=== PATIENT | male | born 1955 | race Caucasian/White ===

== ENCOUNTER 2018-05-30 09:38 | Day surgery (SDC) | payer MEDICARE, OTHER ==
[2018-05-21 13:31] VITALS: BMI 25.0
[2018-05-30] MEDS ORDERED: Propofol 10 mg/ml Inj (20 ML) ONE (12:40)
[2018-05-30 15:13] VITALS: RESP 16; O2SAT 100
[2018-05-30 15:14] VITALS: BP 130/74; PULSE 67; TEMP 98.5
== END 2018-05-30 15:05 | disposition home or self-care (01) ==
LOC: ENDO 09:38
PROVIDERS: ATTEND Internal Medicine Gastroenterology
DX: K21.9 Gastro-esophageal reflux disease without esophagitis (principal); R19.6 Halitosis; K26.9 Duodenal ulcer, unspecified as acute or chronic, without hemorrhage or perforation; E11.43 Type 2 diabetes mellitus with diabetic autonomic (poly)neuropathy; K31.84 Gastroparesis; K29.50 Unspecified chronic gastritis without bleeding; I10 Essential (primary) hypertension